=== PATIENT | female | born 2000 | race Caucasian/White ===

== ENCOUNTER 2023-07-05 08:40 | Emergency (ER) | payer OTHER ==
[~2023-07-05] VITALS: Ht 152.4 cm; Wt 101.8 kg
[2023-07-05 11:38] VITALS: BP 129/85; TEMP 96.9; O2SAT 98
== END 2023-07-05 12:00 | disposition home or self-care (01) ==
LOC: M ED 08:40
DX: N63.10 Unspecified lump in the right breast, unspecified quadrant (principal)